=== PATIENT | female | born 1930 | race Caucasian/White ===

== ENCOUNTER 2016-09-29 10:24 | Inpatient (IN) | payer BC ==
[2016-09-29] MEDS: NORMAL SALINE 1,000 ML IV PRN (15:08)
[2016-09-29] MEDS: KETOROLAC TROMETHAMINE 30 MG/ML VIAL IV PRN ×2 (15:16→21:54)
[2016-09-29] MEDS ORDERED: PROPYLENE GLYCOL OP PRN (18:23)
[2016-09-29] MEDS ORDERED: [UNRECOGNIZED DRUG - OTHER] OP PRN (18:23)
[2016-09-29] MEDS ORDERED: PEG OP PRN (18:23)
--- NOTE | 2016-09-29 18:32 | CONS ---
[facility] - General Date of Service: 09/29/16 Source: patient, family, RN/MD, RN notes reviewed, old records Exam Limitations: no limitations - History of Present Illness Initial Comments: The patient started having rather severe abdominal pain on Monday night. Pain continued on Monday and she began to vomit so she came to the doctor today. CT scan shows high-grade small bowel obstruction with an area of transition. She has not moved her bowels or passed gas since Monday. Per family volunteers that she has been having some pain off and on with some vomiting since August 30. The patient usually has to take senna to move her bowels but even this has not worked the last 2 days. She has not been febrile. Timing/Duration: other Severity: moderate Modifying Factors - (Worsens): Reports: movement Modifying Factors - (Improves): Reports: rest Associated Symptoms: loss of appetite, nausea, vomiting Allergies/Adverse Reactions: Allergies No Known Allergies Allergy (Verified 09/29/16 15:52) Home Medications: Home Medications Medication Instructions Recorded Last Taken Lisinopril [Zestril] 10 mg PO DAILY 11/01/12 05/29/13 10 MG Vit A/Vit C/Vit E/Zinc/Copper 2 each PO DAILY 11/01/12 05/29/13 [Icaps Areds Softgel] 1 EACH Aspirin [Aspirin Enteric Coated] 81 mg PO DAILY 06/20/13 Unknown Multivitamins [Multivitamin Delvin] 1 cap PO DAILY 06/20/13 Unknown Alendronate Sodium [Fosamax] 70 mg PO Q7D 01/05/15 Unknown Calcium Carb, Citrate/Vit D3 1 each PO BID 01/05/15 Unknown [Citracal + D ER Tablet] Acetaminophen [Tylenol] 500 - 1,000 mg PO Q6H PRN 11/05/15 Unknown Efinaconazole [Jublia] 1 applic TP DAILY 11/05/15 Unknown Levothyroxine Sodium [Synthroid] 75 mcg PO DAILY 11/05/15 Unknown Polyethylene Glycol 3350 [Miralax] 17 gm PO DAILY 11/05/15 Unknown Propylene Glycol/Peg 400 [Systane 1 drop OP PRN PRN 11/05/15 Unknown 0.3-0.4% Eye Drops] Sennosides [Senokot] 8.6 mg PO HS 11/05/15 Unknown - Patient's Past Medical History Patient History - Medical: Anemia, Hypothyroidism, Osteoporosis Patient History - Cardiac/Respiratory: Hypertension Patient History - Cancer: Lymphoma, Other - 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 This was resected in October 2012. 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 She had a port placed for chemotherapy in 2012 and had treatment with CVP- Rituximab and R-CHOP 3 cycles then CVP-Rituximab until April 2013. EGD in May 2013 revealed no residual tumor in the stomach. Her port was removed in October 2015. Patient History - Surgical Procedures: Colonoscopy, EGD, Other - She presented with small bowel obstruction from intussusception in October 2012. This was resected. She had an episode of small bowel obstruction from adhesions requiring operation in December 2012. Patient History - Other: None - Family History Mother Family History - Medical: No pertinent hx Family History - Cardiac/Respiratory: CHF Family History - Cancer: No pertinent family hx Father Family History - Medical: No pertinent hx Family History - Cardiac/Respiratory: No pertinent hx, Myocardial Infarction - Social History Living Situations: alone Abuse History: No History of abuse Psych History: No pertinent hx Smoking Status: Former smoker Have you smoked in the past 12 months: No Do you dip or chew tobacco: No Alcohol Use: none Drug Use: none - Immunizations Immunizations Up to Date: Yes Hx Pneumococcal Vaccination: Yes History of Influenza Vaccine: Yes Procedures AFTER-CATAR DISCISSION (05/08/01) COLONOSCOPY (01/18/13) ENDOSC POLYPECTOMY OF LG INTEST (08/04/04) ESOPHAGOGASTRODUODENOSCOPY [EGD] W/CLOSED BIOPSY (06/24/13) INSERTION OF TOTALLY IMPLANTABLE VASC ACCESS DEVIC (01/02/13) OTH LYSIS-PERITONEAL ADHES (01/18/13) PART SM BOWEL RESECT NEC (11/02/12) REMOVE INFUSION PUMP FROM UP EXTREM SUBCU/FASCIA, [employer]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 Absent: Chills, Fever EENTM: Present: No Symptoms Reported Respiratory: Present: No Symptoms Reported Cardiac: Present: No Symptoms Reported Abdominal: Present: Other - The pain in her abdomen is relatively constant and hurts when she moves or coughs. She is vomiting brown material and has not moved her bowels or passed gas for 2 days. She is very distended. Genitourinary: Present: No Symptoms Reported Musculoskeletal: Present: No Symptoms Reported Neurological: Present: No Symptoms Reported Skin: Present: Dryness Physical Examination - Exam Vital Signs: Vital Signs - Last Taken Temp 36.7 C 09/29/16 15:24 Pulse 71 09/29/16 15:24 Resp 16 09/29/16 15:24 BP 147/67 09/29/16 15:24 Pulse Ox 98 09/29/16 15:24 O2 Oxygen Delivery Method Room Air Constitutional: Present: Alert, Oriented x3, Cooperative, Mild distress, Elderly ENT Exam: Present: normal ENT inspection Eye Exam: bilateral eye: normal inspection Neck: Present: full range of motion, normal inspection Respiratory: Present: no respiratory distress Abdomen: Present: other - Abdomen is very distended and tympanitic however is soft. There is no percussion tenderness. There is no discrete point tenderness and she does not guard. She does report the pain is worse on rapid release of the examining hand but again she does not guard /Rectal: Present: Exam deferred Extremity: Present: normal range of motion, no calf tenderness Skin Exam: Present: normal color, warm/dry Neurologic: Present: no motor/sensory deficits Appearance: Present: appropriate appearance, appropriate insight Eye contact: Present: cooperative, good eye contact, normal speech Thoughts: Present: normal thought pattern - Results and Findings: Narrative: CT scan of the abdomen and pelvis reveals findings suspicious for high-grade partial small bowel obstruction with a transition point. There is no free air or fluid. 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 There is considerable nasogastric output. Although the current presentation this with problems for 2 days, her family volunteer she's been having some trouble since early August. A trial of nasogastric suction overnight would not be unreasonable with reassessment in the morning regarding need for laparotomy. Discussed with Dr. Singh. Problem: Acute
--- NOTE | 2016-09-29 22:17 | HP ---
Chief Complaint - Chief Complaint Date of Service: 09/29/16 Time of Service: 17:10 Chief Complaint: Abdominal pain History of Present Illness: Daysi is an 86 yo female who reports two days ago began having abdominal pain, nausea, and vomiting. Emesis has been brown. She last had a bowel movement 2 days ago. She has a history of bowel obstruction and colon resection years ago. Family notes that she had mild symptoms of abdominal pain and nausea that first occurred around August 30. She was seen in clinic by me today and sent over for stat CT. CT showed small bowel obstruction with transition point in the RLQ. 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 This was resected in October 2012. 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 She had a port placed for chemotherapy in 2012 and had treatment with CVP- Rituximab and R-CHOP 3 cycles then CVP-Rituximab until April 2013. EGD in May 2013 revealed no residual tumor in the stomach. Her port was removed in October 2015. Patient History - Surgical Procedures: Colonoscopy, EGD, Other - She presented with small bowel obstruction from intussusception in October 2012. This was resected. She had an episode of small bowel obstruction from adhesions requiring operation in December 2012. Patient History - Other: None - Family History Mother Family History - Medical: No pertinent hx Family History - Cardiac/Respiratory: CHF Family History - Cancer: No pertinent family hx Father Family History - Medical: No pertinent hx Family History - Cardiac/Respiratory: No pertinent hx, Myocardial Infarction - Social History Living Situations: alone Abuse History: No History of abuse Psych History: No pertinent hx Smoking Status: Former smoker Have you smoked in the past 12 months: No Do you dip or chew tobacco: No Alcohol Use: none Drug Use: none - Immunizations Immunizations Up to Date: Yes Hx Pneumococcal Vaccination: Yes History of Influenza Vaccine: Yes Review Of Systems (GEN) - Review of Systems Generalized/Overall Review: Absent: Chills, Fever EENTM: Present: No Symptoms Reported Respiratory: Present: No Symptoms Reported Cardiac: Present: No Symptoms Reported Abdominal: Present: Nausea, Vomiting, Abdominal Pain, Constipation. Absent: Hematemesis, Diarrhea, Melena, Bright blood from rectum Genitourinary: Present: No Symptoms Reported Musculoskeletal: Present: No Symptoms Reported Neurological: Present: No Symptoms Reported Skin: Present: No Symptoms Reported Immunizations: IMMUNIZATION HX Immunizations Up to Date Yes History of Influenza Vaccine Yes Hx Pneumococcal Vaccination Yes Allergies/Adverse Reactions: Allergies Allergy/AdvReac Type Severity Reaction Status Date / Time No Known Allergies Allergy Verified 09/29/16 15:52 Home Medications: HOME MEDICATIONS Lisinopril [Zestril] 10 mg PO DAILY 11/01/12 [Last Taken 05/29/13 10 MG] Vit A/Vit C/Vit E/Zinc/Copper [Icaps Areds Softgel] 2 each PO DAILY 11/01/12 [ Last Taken 05/29/13 1 EACH] Aspirin [Aspirin Enteric Coated] 81 mg PO DAILY 06/20/13 [Last Taken Unknown] Multivitamins [Multivitamin Delvin] 1 cap PO DAILY 06/20/13 [Last Taken Unknown] Alendronate Sodium [Fosamax] 70 mg PO Q7D 01/05/15 [Last Taken Unknown] Calcium Carb, Citrate/Vit D3 [Citracal + D ER Tablet] 1 each PO BID 01/05/15 [ Last Taken Unknown] Acetaminophen [Tylenol] 500 - 1,000 mg PO Q6H PRN 11/05/15 [Last Taken Unknown] Efinaconazole [Jublia] 1 applic TP DAILY 11/05/15 [Last Taken Unknown] Levothyroxine Sodium [Synthroid] 75 mcg PO DAILY 11/05/15 [Last Taken Unknown] Polyethylene Glycol 3350 [Miralax] 17 gm PO DAILY 11/05/15 [Last Taken Unknown] Propylene Glycol/Peg 400 [Systane 0.3-0.4% Eye Drops] 1 drop OP PRN PRN [Last Taken Unknown] Sennosides [Senokot] 8.6 mg PO HS 11/05/15 [Last Taken Unknown] Exam - Exam Vital Signs: Vital Signs - Last Taken Temp 36.7 C 09/29/16 19:32 Pulse 74 09/29/16 19:32 Resp 18 09/29/16 19:32 BP 129/61 09/29/16 19:32 Pulse Ox 97 08/03/17 19:32 Constitutional: Present: Alert, Oriented x3, Cooperative ENT Exam: Present: hearing grossly normal Eye Exam: bilateral eye: normal inspection Respiratory: Present: lungs clear, normal breath sounds Cardiovascular/Chest: Present: regular rate, rhythm, no murmur Abdomen: Present: no hepatospenomegaly, tender - diffuse tenderness to palpation , rebound tenderness, distended, no bowel sounds. Absent: guarding, rigidity Extremity: Present: normal inspection Skin Exam: Present: normal color, warm/dry, no cyanosis Assessment/Plan - Assessment/Plan (1) Small bowel obstruction Assessment: Daysi is an 86 yo female with small bowel obstruction. Will admit to acute inpatient. Expect >2 midnights for treatment. This will include placement of NG tube with intermittent suction, NPO. Will plan to repeat serial abdominal xrays to monitor obstruction. Will treat pain with toradol as this will not slow GI tract as much as narcotics will. However may need narcotics based on pain control. Consulted general surgery. Due to prior surgical history may have adhesions responsible for obstruction. May need surgical investigation. Problem: Acute
[2016-09-30] MEDS: KETOROLAC TROMETHAMINE 30 MG/ML VIAL IV PRN ×4 (04:38→23:08)
[2016-09-30] MEDS: NORMAL SALINE 1,000 ML IV PRN ×2 (04:38→21:07)
--- NOTE | 2016-09-30 06:00 | PN ---
Subjective - Date and Time Seen Date: 09/30/16 Time: 05:52 Subjective Narrative: c/o mild nausea. vomited earlier in the night. states abdomen is not as firm as it was in the ER. Objective - Review of Systems Generalized/Overall Review: Reports: No Symptoms Reported EENTM: Reports: No Symptoms Reported Respiratory: Reports: No Symptoms Reported Cardiac: Reports: No Symptoms Reported Abdominal: Reports: Nausea, Vomiting, Abdominal Pain Genitourinary Symptoms: Reports: No Symptoms Reported Musculoskeletal Complaints: Reports: No Symptoms Reported Neurological: Reports: No Symptoms Reported Skin: Reports: No Symptoms Reported Endocrine: Reports: No Symptoms Reported Misc: All systems neg except as marked - Vitals Vitals: Last Vital Signs Temp 36.8 C 09/30/16 02:38 Pulse 69 09/30/16 02:38 Resp 16 09/30/16 02:38 BP 111/52 09/30/16 02:38 Pulse Ox 96 09/30/16 02:38 - Exam Constitutional: Present: Alert, Cooperative, No distress, Elderly Neck: Present: full range of motion, supple Breasts: Present: Exam deferred Respiratory: Present: chest non-tender, normal breath sounds, no respiratory distress Cardiovascular/Chest: Present: normal peripheral pulses, regular rate, rhythm, no chest tenderness Abdomen: Present: soft, tender - RLQ to right lower mid abdomen tender to palpation, high pitched bowel sounds - RUQ Extremity: Present: non-tender, normal inspection Skin Exam: Present: normal color, warm/dry, no cyanosis Assessment/Plan Plan Narrative: still with n/v. will give zofran for comfort. ng tube draining. abdominal xray pending this am. abdominal soft diffusely and mildly tender RLQ to midline. high pitched bowel sounds in the RUQ. continue same plan of care. general surgery following - appreciate their help. - Problems/Diagnosis (1) Abdominal pain Problem: Acute (2) Small bowel obstruction Problem: Acute
[2016-09-30 06:15] LABS: Hematocrit 34.9 % (37.0-47.0); Hemoglobin 12.3 gm/dL (12.5-16.0); Mean Cell Volume 91.4 fl (78-100); Mean Corpuscular Hemoglobin 32.2 pg (27-31); Mean Corpuscular Hgb Conc 35.2 g/dl (32-36); Mean Platelet Volume 10.2 fl (6.0-9.5); Neutrophil # 6.8 K/mm3 (1.3-6.0); Neutrophil % 76.8 % (42-75.0); Platelet Count 232 K/mm3 (150-450); Red Blood Count 3.82 M/mm3 (4.2-5.4); Red Cell Distribution Width 13.5 % (11.5-14.0); White Blood Count 8.8 K/mm3 (4.0-10.5)
[2016-09-30] MEDS ORDERED: ONDANSETRON HCL/PF 2 MG/ML VIAL IV ONE (06:15)
[2016-09-30 06:25] LABS: Albumin * 3.3 gm/dl (3.4-5.0); Anion Gap 13.5 mmol/L (6.8-13.8); BUN/Creatinine Ratio 18.1 (9.0-21.6); Bilirubin, Total 0.9 mg/dL (0.0-1.1); Ca. Corrected For Albumin 9.2 mg/dL (8.4-10.2); Carbon Dioxide 28.8 mmol/L (24-32.6); Potassium 4.3 mmol/L (3.4-4.6); Total Protein 6.5 gm/dL (6.2-8.2)
[2016-09-30] MEDS: LEVOTHYROXINE SODIUM 75 MCG TABLET PO SCH (07:05)
[2016-09-30] MEDS: LISINOPRIL 10 MG TABLET PO SCH (10:46)
[2016-10-01 06:27] LABS: Hematocrit 32.8 % (37.0-47.0); Hemoglobin 11.4 gm/dL (12.5-16.0); Mean Cell Volume 93.4 fl (78-100); Mean Corpuscular Hemoglobin 32.5 pg (27-31); Mean Corpuscular Hgb Conc 34.8 g/dl (32-36); Mean Platelet Volume 9.4 fl (6.0-9.5); Neutrophil # 6.9 K/mm3 (1.3-6.0); Neutrophil % 79.7 % (42-75.0); Platelet Count 196 K/mm3 (150-450); Red Blood Count 3.51 M/mm3 (4.2-5.4); Red Cell Distribution Width 13.3 % (11.5-14.0); White Blood Count 8.6 K/mm3 (4.0-10.5)
[2016-10-01 06:45] LABS: Anion Gap 14.7 mmol/L (6.8-13.8); BUN/Creatinine Ratio 26.9 (9.0-21.6); Calcium * 8.1 mg/dL (7.9-10.9); Carbon Dioxide 25.6 mmol/L (24-32.6); Estimated Creat Clear 32.3; Potassium 4.3 mmol/L (3.4-4.6)
[2016-10-01] MEDS: KETOROLAC TROMETHAMINE 30 MG/ML VIAL IV PRN ×2 (07:11→18:53)
[2016-10-01] MEDS: LEVOTHYROXINE SODIUM 75 MCG TABLET PO SCH (07:12)
[2016-10-01] MEDS: LISINOPRIL 10 MG TABLET PO SCH (09:09)
--- NOTE | 2016-10-01 09:49 | PN ---
Dictated Progress Note - Date and Time Seen: Date: 10/01/16 Time: 09:45 - Progress Note Narrative: Vital Signs - Last Taken Temp 37.5 C 10/01/16 07:01 Pulse 73 10/01/16 09:09 Resp 16 10/01/16 07:01 BP 127/59 10/01/16 09:09 Pulse Ox 95 10/01/16 07:01 Abnormal/Pending Laboratory Last 24 HRS 10/01/16 10/01/16 06:27 06:27 RBC 3.51 L Hgb 11.4 L Hct 32.8 L MCH 32.5 H Immature Gran % (Auto) 0.50 H Immature Gran # (Auto) 0.04 H Neutrophils % 79.7 H Lymphocytes % 9.6 L Monocytes % 9.8 H Neutrophils # 6.9 H Lymphocytes # 0.8 L Chloride 96 L Anion Gap 14.7 H BUN 28 H Est GFR (Non-Af Amer) 53 L BUN/Creatinine Ratio 26.9 H Yesterday there was some contrast through to the cecum, and the NG was not decompressing the stomach. This was adjusted. Today the bowel gas/contrast pattern has not changed and there is more NG output. No flattus or BM. Impression: Small bowel obstruction, not improved Recommend: Exploratory laparotomy for lysis of adhesions, or possible resection if the area is recurrent lymphoma. Will discuss with patient (in shower) and Dr Singh.
[2016-10-01] MEDS ORDERED: ceFAZolin SODIUM 2 GM in DEXTROSE 5 % IN WATER 50 ML IV ONE ×2 (11:31)
[2016-10-01] MEDS: NORMAL SALINE 1,000 ML IV PRN (12:05)
--- NOTE | 2016-10-01 23:51 | PN ---
Subjective - Date and Time Seen Date: 10/01/16 Time: 17:00 Subjective Narrative: Daysi reports continued abdominal pain, distention. Not passing stool or gas. She is still having dark green fluid out of her NG tube. Objective - Vitals Vitals: Last Vital Signs Temp 36.8 C 10/01/16 19:13 Pulse 78 10/01/16 19:13 Resp 18 10/01/16 19:13 BP 135/54 10/01/16 19:13 Pulse Ox 93 10/01/16 19:13 - Abnormal Lab Findings Abnormal Lab Findings: Abnormal Lab Results 10/01/16 10/01/16 Range/Units 06:27 06:27 RBC 3.51 L (4.2-5.4) M/mm3 Hgb 11.4 L (12.5-16.0) gm/dL Hct 32.8 L (37.0-47.0) % MCH 32.5 H (27-31) pg Immature Gran % (Auto) 0.50 H (0.001-0.429) % Immature Gran # (Auto) 0.04 H (0.000-0.0310) K/mm3 Neutrophils % 79.7 H (42-75.0) % Lymphocytes % 9.6 L (20-51) % Monocytes % 9.8 H (0.0-9) % Neutrophils # 6.9 H (1.3-6.0) K/mm3 Lymphocytes # 0.8 L (1.5-3.5) k/mm3 Chloride 96 L (97-106) mmol/L Anion Gap 14.7 H (6.8-13.8) mmol/L BUN 28 H (3-23) mg/dL Est GFR (Non-Af Amer) 53 L (60-130) mL/min BUN/Creatinine Ratio 26.9 H (9.0-21.6) - Exam Constitutional: Present: Alert, Oriented x3, Cooperative ENT Exam: Present: hearing grossly normal Respiratory: Present: lungs clear, normal breath sounds Cardiovascular/Chest: Present: regular rate, rhythm, no murmur Abdomen: Present: no masses, tender - diffuse tenderness, rebound tenderness, distended - with tympanic percussion, no bowel sounds Assessment/Plan Plan Narrative: Patient with continued small bowel obstruction. Currently treatment conservatively with NG tube, NPO, and pain control with toradol. General surgery on board. Patient with history of atrial fibrillation with RVR after last surgery, we currently do not have ICU nursing staff. Surgery concerned about taking patient to surgery without a safety net of having an ICU staff available. This was discussed with the patient. She is ok waiting till tomorrow to see if her condition improves. - Problems/Diagnosis (1) Small bowel obstruction Problem: Acute
[2016-10-02] MEDS: NORMAL SALINE 1,000 ML IV PRN ×2 (01:34→16:11)
[2016-10-02] MEDS: LEVOTHYROXINE SODIUM 75 MCG TABLET PO SCH (07:44)
[2016-10-02] MEDS: KETOROLAC TROMETHAMINE 30 MG/ML VIAL IV PRN ×2 (08:04→14:20)
[2016-10-02 09:49] LABS: Hematocrit 31.5 % (37.0-47.0); Hemoglobin 10.6 gm/dL (12.5-16.0); Mean Cell Volume 95.7 fl (78-100); Mean Corpuscular Hemoglobin 32.2 pg (27-31); Mean Corpuscular Hgb Conc 33.7 g/dl (32-36); Mean Platelet Volume 9.1 fl (6.0-9.5); Platelet Count 194 K/mm3 (150-450); Red Blood Count 3.29 M/mm3 (4.2-5.4); Red Cell Distribution Width 13.3 % (11.5-14.0); White Blood Count 8.8 K/mm3 (4.0-10.5)
[2016-10-02 09:55] LABS: Total Cells Counted 100
[2016-10-02 10:02] LABS: Albumin * 2.9 gm/dl (3.4-5.0); Anion Gap 18.7 mmol/L (6.8-13.8); BUN/Creatinine Ratio 31.1 (9.0-21.6); Bilirubin, Total 0.4 mg/dL (0.0-1.1); Ca. Corrected For Albumin 8.4 mg/dL (8.4-10.2); Calcium * 7.8 mg/dL (7.9-10.9); Carbon Dioxide 21.5 mmol/L (24-32.6); Potassium 4.2 mmol/L (3.4-4.6)
[2016-10-02] MEDS: LISINOPRIL 10 MG TABLET PO SCH (10:04)
[2016-10-02 10:34] LABS: Atypical (Reactive) Lymph 8 % (0-2); Band 6 % (0-2.0); Basophil 1 % (0-1); Lymphocyte 10 % (20-51); Monocyte 4 % (0-9); Neutrophil 71 % (42-75); Neutrophil # 6.2 K/mm3 (1.3-6.0); Platelet Estimate Normal (NORMAL)
[2016-10-02 10:35] LABS: RBC Morphology Normal (NORMAL)
--- NOTE | 2016-10-02 11:22 | DS ---
Transfer Discharge Summary - Diagnosis(s)/Problems (1) Small bowel obstruction Narrative: Daysi was admitted from clinic on 09/29/16 with 2 days of progressive abdominal pain, no bowel movements, no flatus, and vomiting fluid which had turned brown. She had a stat CT performed that showed small bowel obstruction. She was admitted to acute inpatient status. NG tube was placed with return of brown fluid. She was made NPO and surgery was consulted. She was monitored with daily abdominal xrays but did not improve. Labwork initially showed hyponatremia, but this was corrected with IVFs. Her abdominal exam and abdominal xrays continued to show persistent small bowel obstruction. Surgery felt that the conservative approach was not going to be successful. She has a complicated history of prior small bowel obstruction which required resection of lymphoma mass and anastomosis. She also had complications of atrial fibrillation with RVR. Surgery was concerned performing the surgery without ICU staffing. [facility] was contacted for transfer and accepted. Problem: Acute - Course Procedures Performed: none - Results and Findings Results and Findings: Laboratory Results - last 24 hr 10/02/16 10/02/16 09:42 09:42 WBC 8.8 RBC 3.29 L Hgb 10.6 L Hct 31.5 L MCV 95.7 MCH 32.2 H MCHC 33.7 RDW 13.3 Plt Count 194 MPV 9.1 Neutrophils % (Manual) 71 Band Neuts % (Manual) 6 H Lymphocytes % (Manual) 10 L Monocytes % (Manual) 4 Basophils % (Manual) 1 Neutrophils # (Manual) 6.2 H Lymphocytes # (Manual) 0.9 L Monocytes # (Manual) 0.4 Basophils # (Manual) 0.1 Atypic/Reactive Lymphs 8 H Platelet Estimate Normal RBC Morphology Normal Sodium 135 Plasma Sodium 134 Potassium 4.2 Chloride 99 Carbon Dioxide 21.5 L Anion Gap 18.7 H BUN 23 Creatinine 0.74 Est GFR (Non-Af Amer) 79 D BUN/Creatinine Ratio 31.1 H Random Glucose 60 L Calcium 7.8 L Calcium Adj for Albumin 8.4 Total Bilirubin 0.4 AST 22 ALT 15 L Alkaline Phosphatase 51 Total Protein 6.0 L Albumin 2.9 L - Medications Medications: Active Medications Sodium Chloride (Sodium Chloride 0.9%) 1,000 mls @ 70 mls/hr IV .[id number] PRN PRN Reason: HYDRATION Stop: 10/29/16 14:17 Last Admin: 10/02/16 01:34 Dose: 70 mls/hr Ketorolac Tromethamine (Toradol) 30 mg IV Q6H PRN PRN Reason: Pain Stop: 10/04/16 14:20 Last Admin: 10/02/16 08:04 Dose: 30 mg Levothyroxine Sodium (Synthroid) 75 mcg PO QDAC [facility] Stop: 10/30/16 07:01 Last Admin: 10/02/16 07:44 Dose: 75 mcg Lisinopril (Zestril) 10 mg PO DAILY [facility] Stop: 10/30/16 09:01 Last Admin: 10/02/16 10:04 Dose: 10 mg Discontinued Medications Ondansetron HCl (Zofran) 4 mg IV ONCE ONE Stop: 09/30/16 06:16 Last Admin: 09/30/16 06:18 Dose: 4 mg - Disposition Disposition: [facility] Condition: Poor
[2016-10-02 16:07] VITALS: BP 142/54
== END 2016-10-02 16:43 | disposition short-term general hospital (02) | DRG 390 ==
LOC: RAD 10:24 → MS 13:51
PROVIDERS: ADMIT Family Medicine; ATTEND Family Medicine
DX: K56.60 Unspecified intestinal obstruction (principal); E03.9 Hypothyroidism, unspecified; I10 Essential (primary) hypertension; Z85.72 Personal history of non-Hodgkin lymphomas; Z87.891 Personal history of nicotine dependence; Z92.21 Personal history of antineoplastic chemotherapy; Z79.82 Long term (current) use of aspirin
CPT/HCPCS: 36415; 74000; 74020; 74177; 80048; 80053; 85007; 85025; 93005; J2405

== ENCOUNTER 2017-10-04 15:59 | Inpatient (IN) ==
--- NOTE | 2017-10-04 18:12 | ERNOTE ---
Medical Problem HPI - Narrative Date of Service: 10/04/17 - General Chief Complaint: Lower Extremity Pain/ Injury Time Seen by Provider: 10/04/17 16:38 Source: patient, family, RN notes reviewed, old records Exam Limitations: no limitations - Immun/Allergies/Home Medications Immunizations: IMMUNIZATION HX Immunizations Up to Date Yes History of Influenza Vaccine Yes Hx Pneumococcal Vaccination Yes Allergies/Adverse Reactions: Allergies No Known Allergies Allergy (Verified 10/04/17 16:19) Home Medications: HOME MEDICATIONS Lisinopril [Zestril] 10 mg PO DAILY 11/01/12 [Last Taken 05/29/13 10 MG] Vit A/Vit C/Vit E/Zinc/Copper [Icaps Areds Softgel] 2 ea PO DAILY 11/01/12 [ Last Taken 05/29/13 1 EACH] Aspirin [Aspirin Enteric Coated] 81 mg PO DAILY 06/20/13 [Last Taken Unknown] Multivitamins [Multivitamin Delvin] 1 cap PO DAILY 06/20/13 [Last Taken Unknown] Alendronate Sodium [Fosamax] 70 mg PO Q7D 01/05/15 [Last Taken Unknown] Acetaminophen [Tylenol] 500 - 1,000 mg PO Q6H PRN 11/05/15 [Last Taken Unknown] Levothyroxine Sodium [Synthroid] 75 mcg PO DAILY 11/05/15 [Last Taken Unknown] Polyethylene Glycol 3350 [Miralax] 17 gm PO DAILY 11/05/15 [Last Taken Unknown] calcium phosphate-vitamin D3 250 mg calcium-250 unit chewable tablet 1 tab PO BID tab 09/25/17 [Last Taken Unknown] peg 400-propylene glycol 0.4 %-0.3 % eye drops 1 drp OP DAILY 09/25/17 [Last Taken Unknown] - History of Present History Narrative: Daysi is a 87 year old female brought to the ED by her family after being notified that lab work she had done earlier this afternoon. Her sodium is 123 and her BNP is 1309. The lab work was done due to concerns about her lower extremity edema that has been ongoing for approximately a year. 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 She has been seeing oncology at [facility] for this. She is going to the [facility] soon for a second opinion about her treatment. In addition, her family reports that she fell yesterday morning while getting into the shower. She reports hitting her head and lower back. She hit her head "very hard" but denies any LOC. She does not have any back pain at rest, but reports that it is sore when she moves. Review of Systems - Review of Systems Constitutional: Present: fatigue, decreased activity level. Absent: fever, chills EYE: Absent: eye pain, vision changes ENT: Present: no symptoms reported Respiratory: Absent: shortness of breath, cough, orthopnea Cardiology: Present: edema. Absent: chest pain, palpitations, claudication Gastrointestinal/Abdominal: Absent: nausea, vomiting, abdominal pain Genitourinary: Absent: dysuria, decreased urinary output Musculoskeletal: Present: back pain. Absent: neck pain, joint pain, joint swelling Skin: Absent: rash, lesions, change in color Neurological: Absent: headache, dizziness/light-headedness, weakness Endocrine: Present: no symptoms reported Hematologic/Lymphatic: Absent: easy bruising, easy bleeding Psych: Present: no symptoms reported Medical History (Last Reviewed 10/04/17 @ 16:18 by Ann Sanchez RN) Hypertension Onset Date: Unknown Hypothyroidism (acquired) Onset Date: Unknown Macular degeneration Onset Date: Unknown Osteoporosis Onset Date: Unknown Fracture of humerus, left, closed Onset Date: ~01/2014 History of chemotherapy Onset Date: Unknown MALT (mucosa associated lymphoid tissue) Onset Date: Unknown Malignant lymphoma, non-Hodgkin's Onset Date: Unknown Shingles Onset Date: Unknown Small bowel obstruction Onset Date: ~09/29/16 Surgical History: Surgical History (Last Reviewed 10/04/17 @ 16:19 by Ann Sanchez RN) Encounter for insertion of venous access port Onset Date: ~01/02/13 H/O colonoscopy Onset Date: ~01/16/13 H/O exploratory laparotomy Onset Date: ~01/18/13 H/O lumpectomy Onset Date: ~1958 History of bowel resection Onset Date: ~11/02/12 History of esophagogastroduodenoscopy (EGD) Onset Date: ~06/24/13 Family History: Family History (Last Reviewed 09/29/17 @ 09:16 by Danielle Shepard) Father Hypertension Heart disease Grandmother Breast cancer Mother CHF (congestive heart failure) Hypertension Sister Hypertension Sister Cancer Social History: Preferred Language Romansh Smoking Status Former smoker Abuse History No History of abuse Psych History No pertinent hx Alcohol Use occasionally Drug Use none Physical Exam - Physical Exam General Appearance: Present: alert, no apparent distress, thin Head Exam: Present: normal inspection, no evidence of injury Eye Exam: Normal inspection: bilateral, PERRL: bilateral Neck: Present: normal inspection, nontender, supple, full range of motion Respiratory: Present: no respiratory distress, normal breath sounds, no accessory muscle use, lungs clear Cardiovascular/Chest: Present: regular rate, rhythm, no murmur, normal peripheral pulses Peripheral Pulses: N=norm/S=strong/W=weak/B=bound/A=absent: Dorsalis-pedis (R): Normal, Dorsalis-pedis (L): Normal Gastrointestinal/Abdominal: Present: nontender, distended - firm, mass Extremity Exam: Present: extremity edema - 3+ pitting edema to bilateral lower legs. Absent: joint redness, joint swelling Neurological Exam: Present: alert, oriented, normal mood/affect, no motor/ sensory deficits Skin Exam: Present: normal color, warm/dry ED Progress - Vital Signs Patient's Vital Signs:: I have reviewed the patient's vital signs. Vital Signs: Vital Signs 10/04/17 16:21 Temperature 36.6 C Pulse Rate 76 Respiratory Rate 16 Blood Pressure 158/70 H O2 Sat by Pulse Oximetry 98 - EKG EKG: NSR EKG read: Reviewed by me - X-Ray X-Ray #1 X-Ray: chest Interpretation: Interp. by me X-ray Comments: Cardiomegaly, no congestion suggestive of CHF, small bilateral pleural effusions - CT/Ultrasound CT/Ultrasound Narrative: Head CT is without acute intracranial abnormalities - Progress/Reassessment Chief Complaint: Lower Extremity Pain/ Injury Progress:: Unchanged Plan - Plan Plan: Dr. Jones contacted and the patient will be admitted to observation status on Med/Surg for her hyponatremia. She will be getting IV NS at 125ml/hr and will be on a fluid restriction of 750 ml per day. Her BMP will be rechecked at 0100. She and her family are in agreement with plan. Departure Clinical Impression: Acute hyponatremia Fall at home Qualifiers: Encounter type: initial encounter Qualified Code(s): W19.XXXA - Unspecified fall, initial encounter; Y92.009 - Unspecified place in unspecified non- institutional (private) residence as the place of occurrence of the external cause - Departure Disposition: Still a patient Condition: Stable
[2017-10-04] MEDS ORDERED: NORMAL SALINE 1,000 ML IV ONE (18:36)
--- NOTE | 2017-10-04 21:52 | HP ---
Chief Complaint - Chief Complaint Date of Service: 10/04/17 Time of Service: 21:51 Chief Complaint: ' Abnormal labs'. Source of HPI-Pt; reliable, ERP notes, pt's 2 sons and daughter. History of Present Illness: Mrs. Pittman is a 87-yr-old [facility] pt of Dr. Abimael Singh with a PMH of: B cell lymphoma, HTN, HLD, Hypothyroidism, Osteoporosis & Small bowel resection. Pt was brought to the ED by family following notification about abnormal follow-up labs by PCP. She reportedly had a Serum Na of 123 and BNP of 1309. Pt had been following up at the [facility] oncology following CT findings on 08/21/17, which had numerous findings involving liver lesions & probable mesenteric adenopathy which were concerning for metastasis. Pt's family states that they were informed by the oncologist that due to pt's age, she could not withstand IV chemotherapy. The oncologist offered to treat pt with keytruda, but they objected that as it was still going to be administered intravenously. Family states that they are frustrated about frequent stance concerning the pt's age and the complications with chemo treatment. They feel that their mother is strong, very independent and her physique is not of other elderly people her age. Therefore, they opted to seek a second opinion at the [facility] for their mother. The pt has an appointment scheduled for next Monday (10/09). Family states that were concerned about the ongoing worsening swelling which has been present for a period of 1 yr, and they were asked to follow-up with PCP. She then had those labs on 10/04 as part of work-up in finding the etiology of her leg swelling. Pt denies weakness, headaches. There are no reports of lethargy or confusion according to the family. Pt denies coughing, fevers, SOB abdominal pain and diarrhea n& v. She has had back pain. She fell 2 days ago hitting her head, but head CT was negative of acute findings. The CXR showed interstitial edema, small bilateral effusion, and atelectasis. It also showed age intermediate anterior compression fracture within mid thoracic spine , which was new from prior exam in 2013. She will be admitted inpatient due to hyponatremia which may take several days to correct to NR Medical History (Last Reviewed 10/04/17 @ 21:29 by Nikki Cedeño RN) Hypertension Onset Date: Unknown Hypothyroidism (acquired) Onset Date: Unknown Macular degeneration Onset Date: Unknown Osteoporosis Onset Date: Unknown Fracture of humerus, left, closed Onset Date: ~01/2014 History of chemotherapy Onset Date: Unknown MALT (mucosa associated lymphoid tissue) Onset Date: Unknown Malignant lymphoma, non-Hodgkin's Onset Date: Unknown Shingles Onset Date: Unknown Small bowel obstruction Onset Date: ~09/29/16 Surgical History: Surgical History (Last Reviewed 10/04/17 @ 21:29 by Nikki Cedeño RN) Encounter for insertion of venous access port Onset Date: ~01/02/13 H/O colonoscopy Onset Date: ~01/16/13 H/O exploratory laparotomy Onset Date: ~01/18/13 H/O lumpectomy Onset Date: ~1958 History of bowel resection Onset Date: ~11/02/12 History of esophagogastroduodenoscopy (EGD) Onset Date: ~06/24/13 Family History: Family History (Last Updated 10/04/17 @ 21:31 by Nikki Cedeño RN) Father Heart disease Hypertension Grandmother Breast cancer Mother CHF (congestive heart failure) Hypertension Sister Hypertension Cancer Sister No problems noted. Social History: Preferred Language Kenyan Smoking Status Former smoker Abuse History No History of abuse Psych History No pertinent hx Alcohol Use occasionally Drug Use none Review Of Systems (GEN) - Review of Systems Generalized/Overall Review: Absent: Weakness, Chills, Fever, Malaise EENTM: Absent: Eye Pain, Blurred Vision, Tearing, Ear Pain Respiratory: Absent: Cough, Shortness of Breath Cardiac: Present: Edema. Absent: Chest Pain, Palpitations, Syncope Abdominal: Absent: Nausea, Vomiting, Hematemesis, Abdominal Pain, Constipation Genitourinary: Absent: Burning, Itching, Urgency, Frequency, Hesitancy, Retention Musculoskeletal: Present: Joint Pain, Back Pain. Absent: Joint Swelling, Muscle Pain Neurological: Present: Depressed, Weakness. Absent: Headache, Anxiety Skin: Absent: Dryness, Lesions, Lumps Endocrine: Present: Intolerance to Cold. Absent: Increased Hunger, Increased Thirst Immunizations: IMMUNIZATION HX Immunizations Up to Date Yes History of Influenza Vaccine Yes Hx Pneumococcal Vaccination Yes Allergies/Adverse Reactions: Allergies Allergy/AdvReac Type Severity Reaction Status Date / Time No Known Allergies Allergy Verified 10/04/17 21:31 Home Medications: HOME MEDICATIONS Lisinopril [Zestril] 10 mg PO DAILY 11/01/12 [Last Taken 05/29/13 10 MG] Vit A/Vit C/Vit E/Zinc/Copper [Icaps Areds Softgel] 2 ea PO DAILY 11/01/12 [ Last Taken 05/29/13 1 EACH] Aspirin [Aspirin Enteric Coated] 81 mg PO QPM 06/20/13 [Last Taken Unknown] Multivitamins [Multivitamin Delvin] 1 cap PO DAILY 06/20/13 [Last Taken Unknown] Alendronate Sodium [Fosamax] 70 mg PO Q7D 01/05/15 [Last Taken Unknown] Acetaminophen [Tylenol] 1,000 mg PO QPM PRN 11/05/15 [Last Taken Unknown] Levothyroxine Sodium [Synthroid] 75 mcg PO DAILY 11/05/15 [Last Taken Unknown] Polyethylene Glycol 3350 [Miralax] 17 gm PO QPM 11/05/15 [Last Taken Unknown] calcium phosphate-vitamin D3 250 mg calcium-250 unit chewable tablet 1 tab PO BID tab 09/25/17 [Last Taken Unknown] peg 400-propylene glycol 0.4 %-0.3 % eye drops 1 drp OP DAILY PRN 09/25/17 [ Last Taken Unknown] Ibuprofen 200 mg PO QAM 10/04/17 [Last Taken Unknown] Exam - Exam Vital Signs: Vital Signs - Last Taken Temp 36.6 C 10/04/17 21:41 Pulse 81 10/04/17 21:41 Resp 16 10/04/17 21:41 BP 135/52 10/04/17 21:41 Pulse Ox 96 10/04/17 21:41 Constitutional: Present: Alert, Oriented x3, Cooperative, No distress ENT Exam: Present: normal ENT inspection Eye Exam: bilateral eye: normal inspection, PERRL Neck: Present: non-tender, full range of motion, supple Back Exam: Present: normal inspection, no CVA tenderness Breasts: Present: Exam deferred Respiratory: Present: No rales, No wheezing Cardiovascular/Chest: Present: normal peripheral pulses, gallop/S3, edema Abdomen: Present: Normal bowel sounds, firm, distended /Rectal: Present: Exam deferred Extremity: Present: normal range of motion, no pedal edema, lower extremity edema, other - 3-4 + tibial pedal edema Skin Exam: Present: no cyanosis, cool/dry Lymphatic: Present: no adenopathy Neurologic: Present: alert, oriented x 3 Appearance: Present: appropriate appearance, appropriate insight Eye contact: Present: cooperative, good eye contact, normal speech Thoughts: Present: normal thought pattern, no apparent hallucination Assessment/Plan - Assessment/Plan (1) Acute hyponatremia Assessment: Is likely due to hypervolemic hyponatremia given fluid overload signs from interstitial edema on the CXR, Peripheral pitting edema, and ascites likely given distended firm abdomen. Will diurese with lasix Could also be worsened by NSAID therapy- pt takes ibuprofen three time daily. Will advise to discontinue. Problem: Acute (2) Acute exacerbation of CHF (congestive heart failure) Assessment: Given the findings on the CXR involving interstitial edema, elevated BNP, and peripheral edema, will diurese with Lasix. Monitor kidney function and will determine daily doses based on electrolytes and fluid volume status. 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 This was resected in October 2012. She had a mucosa associated lymphoid tumor (MALT) found on EGD done to investigate gastric wall thickening seen on staging CT. She had a port placed for chemotherapy in 2012 and had treatment with CVP-Rituximab and R-CHOP 3 cycles then CVP-Rituximab until April 2013. EGD in May 2013 revealed no residual tumor in the stomach. Her port was removed in October 2015. Problem: Chronic (5) HTN (hypertension) Problem: Chronic (6) HLD (hyperlipidemia) Problem: Chronic
[2017-10-04] MEDS ORDERED: POLYVINYL ALCOHOL 150 DROP BTL EACHEYE PRN (23:08)
[2017-10-04] MEDS ORDERED: POTASSIUM CHLORIDE 20 MEQ TABLET.SA PO ONE (23:45)
[2017-10-04] MEDS ORDERED: FUROSEMIDE 10 MG/ML VIAL IV ONE (23:45)
[2017-10-05] MEDS ORDERED: POTASSIUM CHLORIDE 20 MEQ TABLET.SA ONE (01:06)
[2017-10-05] MEDS ORDERED: FUROSEMIDE 10 MG/ML VIAL ONE (01:07)
[2017-10-05] MEDS: ACETAMINOPHEN 500 MG TABLET PO PRN ×2 (01:15→21:49)
[2017-10-05 01:21] LABS: BUN/Creatinine Ratio 15.9 (9.0-21.6); Calcium * 7.8 mg/dL (7.9-10.9); Carbon Dioxide 26.4 mmol/L (24-32.6); Estimated Creat Clear 35.1; Potassium 4.4 mmol/L (3.4-4.6)
--- NOTE | 2017-10-05 05:28 | PN ---
Subjective - Date and Time Seen Date: 10/05/17 Time: 05:28 Subjective Narrative: Pt seen this morning. She diuresed nearly 1 L with 40 of IV lasix. Is complaining of back pain which is worsened with activity. No other issues according to nursing. Objective - Vitals Vitals: Last Vital Signs Temp 36.6 C 10/04/17 21:43 Pulse 75 10/05/17 01:24 Resp 16 10/04/17 21:43 BP 145/68 10/05/17 01:24 Pulse Ox 96 10/04/17 21:43 - Abnormal Lab Findings Abnormal Lab Findings: Abnormal Lab Results 10/05/17 Range/Units 01:00 Sodium 125 L (132-142) mmol/L Plasma Sodium 125 L (130-142) mmol/L Chloride 92 L (97-106) mmol/L Calcium 7.8 L (7.9-10.9) mg/dL - Exam Constitutional: Present: Alert, Oriented x3, Cooperative, No distress ENT Exam: Present: normal ENT inspection, hearing grossly normal Neck: Present: non-tender, full range of motion Breasts: Present: Exam deferred Respiratory: Present: No rales, No wheezing Cardiovascular/Chest: Present: normal peripheral pulses, regular rate, rhythm, no chest tenderness, edema Abdomen: Present: Normal bowel sounds, firm, distended /Rectal: Present: Exam deferred Extremity: Present: normal range of motion, non-tender, lower extremity edema Skin Exam: Present: warm/dry, no cyanosis Lymphatic: Present: no adenopathy Neurologic: Present: no motor/sensory deficits, alert, oriented x 3 Appearance: Present: appropriate appearance, appropriate insight Eye contact: Present: cooperative, good eye contact, normal speech Thoughts: Present: normal thought pattern, no apparent hallucination Assessment/Plan - Problems/Diagnosis (1) Acute hyponatremia Problem: Acute Narrative: Is likely due to hypervolemic hyponatremia given fluid overload signs from interstitial edema on the CXR, Peripheral pitting edema, and ascites likely given distended firm abdomen. Will diurese with lasix Could also be worsened by NSAID therapy- pt takes ibuprofen three time daily. Will advise to discontinue. Laboratory Tests 10/04/17 10/05/17 10/05/17 13:12 01:00 05:23 Plasma Sodium 125 L 127 L B-Natriuretic Peptide 1309 H (2) Acute exacerbation of CHF (congestive heart failure) Problem: Acute Qualifiers: Heart failure type: diastolic Qualified Code(s): I50.33 - Acute on chronic diastolic (congestive) heart failure Narrative: Given the findings on the CXR involving interstitial edema, elevated BNP, and peripheral edema, will diurese with Lasix. Monitor kidney function and will determine daily doses based on electrolytes and fluid volume status. 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 This was resected in October 2012. She had a mucosa associated lymphoid tumor (MALT) found on EGD done to investigate gastric wall thickening seen on staging CT. She had a port placed for chemotherapy in 2012 and had treatment with CVP-Rituximab and R-CHOP 3 cycles then CVP-Rituximab until April 2013. EGD in May 2013 revealed no residual tumor in the stomach. Her port was removed in October 2015. (5) HTN (hypertension) Problem: Chronic (6) HLD (hyperlipidemia) Problem: Chronic
[2017-10-05 05:34] LABS: Anion Gap 11.1 mmol/L (6.8-13.8); BUN/Creatinine Ratio 14.1 (9.0-21.6); Calcium * 7.9 mg/dL (7.9-10.9); Carbon Dioxide 28.3 mmol/L (24-32.6); Estimated Creat Clear 33.9; Potassium 4.4 mmol/L (3.4-4.6)
[2017-10-05] MEDS ORDERED: POLYVINYL ALCOHOL 150 DROP BTL EACHEYE PRN (06:30)
[2017-10-05] MEDS ORDERED: FUROSEMIDE 10 MG/ML VIAL IV ONE (06:56)
[2017-10-05] MEDS: LEVOTHYROXINE SODIUM 75 MCG TABLET PO SCH (07:29)
[2017-10-05] MEDS: MULTIVITAMINS 1 CAP CAPSULE PO SCH (09:13)
[2017-10-05] MEDS: BETA-CAROTENE(A) W-C , E/MIN 1 TAB TABLET PO SCH (09:13)
[2017-10-05] MEDS: CALCIUM CARBONATE/VITAMIN D3 1 TAB TABLET PO SCH ×2 (09:13→21:50)
[2017-10-05] MEDS: LISINOPRIL 10 MG TABLET PO SCH (09:13)
[2017-10-05] MEDS: IBUPROFEN 200 MG TABLET PO SCH (09:13)
[2017-10-05] MEDS ORDERED: ENOXAPARIN SODIUM 40 MG/0.4 ML SYRG SC SCH (12:00)
[2017-10-05] MEDS ORDERED: ASPIRIN 81 MG TABLET.DR PO SCH (17:00)
[2017-10-05] MEDS ORDERED: POLYETHYLENE GLYCOL 3350 119 GM BTL PO SCH ×2 (17:00)
[2017-10-06 05:36] LABS: Anion Gap 9.3 mmol/L (6.8-13.8); BUN/Creatinine Ratio 16.7 (9.0-21.6); Calcium * 8.6 mg/dL (7.9-10.9); Carbon Dioxide 30.1 mmol/L (24-32.6); Estimated Creat Clear 34.3; Potassium 4.4 mmol/L (3.4-4.6)
--- NOTE | 2017-10-06 05:47 | DS ---
Addendum entered and electronically signed by Caleb Jones MD 10/06/17 14 :47: Addendum entered and electronically signed by Caleb Jones MD 10/06/17 14 :41: I saw and examined this patient on 10/06/2017. I agree with the narraive and plan of JESSICA Sifuentes. She had hypervoolemic hypotnic hyponatremia. Her Na is back to her baseline at 128. She is asymptomatic. 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 Her Echo showed moderate concentric LVH, normal EF, diastolic dysfunction, mild MR,AR,TR. Will discharge her on Lasix, and TERA I. Continue with her home medications. She has an appointment with [facility] on Monday. Follow up with her PCP in 2 weeks. Original Note: <Caleb Jones - Last Filed: 10/06/17 14:21> (1) Acute exacerbation of CHF (congestive heart failure) Problem: Acute Qualifiers: Heart failure type: diastolic Qualified Code(s): I50.33 - Acute on chronic diastolic (congestive) heart failure (2) Acute hyponatremia Problem: Acute (3) Fall at home Problem: Acute Qualifiers: Encounter type: initial encounter Qualified Code(s): W19.XXXA - Unspecified fall, initial encounter; Y92.009 - Unspecified place in unspecified non-institutional (private) residence as the place of occurrence of the external cause (4) B-cell lymphoma Problem: Chronic (5) HLD (hyperlipidemia) Problem: Chronic (6) HTN (hypertension) Problem: Chronic Qualifiers: Hypertension type: essential hypertension Qualified Code(s): I10 - Essential (primary) hypertension (7) Thoracic compression fracture Problem: Acute Procedures Performed: none Results and Findings: Lab Pending Results 10/05/17 01:00: Sodium 125 L, Plasma Sodium 125 L, Potassium 4.4, Chloride 92 L , Carbon Dioxide 26.4, Anion Gap 11.0, BUN 13, Creatinine 0.82, Est GFR (Non-Af Amer) 70, BUN/Creatinine Ratio 15.9, Random Glucose 95, Calcium 7.8 L 10/05/17 05:23: Sodium 127 L, Plasma Sodium 127 L, Potassium 4.4, Chloride 92 L , Carbon Dioxide 28.3, Anion Gap 11.1, BUN 12, Creatinine 0.85, Est GFR (Non-Af Amer) 67, BUN/Creatinine Ratio 14.1, Random Glucose 84, Calcium 7.9 10/06/17 05:10: Sodium 128 L, Plasma Sodium 128 L, Potassium 4.4, Chloride 93 L , Carbon Dioxide 30.1, Anion Gap 9.3, BUN 14, Creatinine 0.84, Est GFR (Non-Af Amer) 68, BUN/Creatinine Ratio 16.7, Random Glucose 83, Calcium 8.6 Disposition: [facility] Other - [facility] Condition: Stable Face to Face Encounter completed per [facility] Guidelines: Yes Discharge Diet: General/regular food, Other - Potassium rich Diet Referrals: Abimeal Singh, [Primary Care Provider] - Problem Oriented Discharge Instructions to Patient/Family: Hyponatremia, Easy- to-Read Additional Patient Instructions (free text): Follow up appointment with Dr. Singh on 10/24/17 at 3:30pm [facility]. Please fax orders on Monday. Prescriptions (Any new or edited meds): Furosemide [Lasix] 40 mg PO DAILY #30 tab Complete Home Medications List: Complete Home Medication List: Lisinopril [Zestril] 10 mg PO DAILY 11/01/12 Vit A/Vit C/Vit E/Zinc/Copper [Icaps Areds Softgel] 2 ea PO DAILY 11/01/12 Aspirin [Aspirin Enteric Coated] 81 mg PO QPM 06/20/13 Multivitamins [Multivitamin Delvin] 1 cap PO DAILY 06/20/13 Alendronate Sodium [Fosamax] 70 mg PO Q7D 01/05/15 Acetaminophen [Tylenol] 1,000 mg PO QPM PRN 11/05/15 Levothyroxine Sodium [Synthroid] 75 mcg PO DAILY 11/05/15 Polyethylene Glycol 3350 [Miralax] 17 gm PO QPM 11/05/15 calcium phosphate-vitamin D3 250 mg calcium-250 unit chewable tablet 1 tab PO BID tab 09/25/17 peg 400-propylene glycol 0.4 %-0.3 % eye drops 1 drp OP DAILY PRN 09/25/17 Ibuprofen 200 mg PO QAM 10/04/17 Furosemide [Lasix] 40 mg PO DAILY #30 tab 10/06/17 Amb Orders for Discharge: Basic Metabolic Panel Time Frame: 1 Week, Location: None Selected <Ivania Adames - Last Filed: 10/06/17 20:01> (1) Acute hyponatremia Problem: Acute (2) Acute exacerbation of CHF (congestive heart failure) Problem: Acute Qualifiers: Heart failure type: diastolic Qualified Code(s): I50.33 - Acute on chronic diastolic (congestive) heart failure (3) Thoracic compression fracture Problem: Acute (4) B-cell lymphoma Problem: Chronic (5) HTN (hypertension) Problem: Chronic Qualifiers: Hypertension type: essential hypertension Qualified Code(s): I10 - Essential (primary) hypertension (6) HLD (hyperlipidemia) Problem: Chronic Description of Stay: Admission date:10/05/17 Discharge date:10/06/17 Hospital Stay Description. Mrs. Pittman is a 87-yr-old W[facility] pt of Dr. Abimael Singh with a PMH of: B cell lymphoma, HTN, HLD, Hypothyroidism, Osteoporosis & Small bowel resection. Pt was brought to the ED by family following notification on 10/04, about abnormal follow-up labs by PCP. She reportedly had a Serum Na of 123 and BNP of 1309. Pt had been following up at the [facility] oncology following Abdominal CT results on 08/21/17, which had numerous findings involving liver lesions & probable mesenteric adenopathy, which were concerning for metastasis. Pt's family states that they were informed by the oncologist that due to pt's age, she could not withstand IV chemotherapy. Therefore, they opted to seek a second opinion at the [facility] for their mother. The pt has an appointment scheduled for next Monday (10/09). Family stated that they were concerned about the ongoing worsening swelling which has been present for a period of 1 yr , and they were asked to follow-up with PCP. She then had those labs on 10/04 as part of work-up in finding the etiology of her leg swelling. Pt denied weakness & headaches. There were no reports of lethargy or confusion according to the family. Pt denied coughing, fevers, SOB abdominal pain and diarrhea n & v. She has had back pain as a result of a fall 2 days prior to coming to the hospital , but head CT obtained did not indicate any acute findings. The CXR at the ED on DOA showed showed interstitial edema, small bilateral effusion & atelectasis. It also showed age intermediate compression fracture withing mid thoracic spine, which was new from prior exam. Pain mgt with opiods/NSAIDs was encouraged but if pain got debilitating, other options of treatment such as vertebroplasty or kyphoplasty needed to be arranged with her PCP. She was admitted inpatient due to hyponatremia. She was determined to have hypervolemic hyponatremia due signs of fluid overload given findings on the CXR, Peripheral pitting edema, and ascites - given distended firm abdomen. She was diuresed with IV Lasix which corrected her Plasma sodium from 123--> 127--> 128. Also given new clinical signs of Acute Heart Failure, She had an Echocardiogram on ( results pending) Results and Findings: Lab Pending Results 10/05/17 01:00: Sodium 125 L, Plasma Sodium 125 L, Potassium 4.4, Chloride 92 L , Carbon Dioxide 26.4, Anion Gap 11.0, BUN 13, Creatinine 0.82, Est GFR (Non-Af Amer) 70, BUN/Creatinine Ratio 15.9, Random Glucose 95, Calcium 7.8 L 10/05/17 05:23: Sodium 127 L, Plasma Sodium 127 L, Potassium 4.4, Chloride 92 L , Carbon Dioxide 28.3, Anion Gap 11.1, BUN 12, Creatinine 0.85, Est GFR (Non-Af Amer) 67, BUN/Creatinine Ratio 14.1, Random Glucose 84, Calcium 7.9 10/06/17 05:10: Sodium 128 L, Plasma Sodium 128 L, Potassium 4.4, Chloride 93 L , Carbon Dioxide 30.1, Anion Gap 9.3, BUN 14, Creatinine 0.84, Est GFR (Non-Af Amer) 68, BUN/Creatinine Ratio 16.7, Random Glucose 83, Calcium 8.6 Discharge Location: Home Discharge Activity: Activity as tolerated Discharge Diet: General/regular food
[2017-10-06] MEDS: LEVOTHYROXINE SODIUM 75 MCG TABLET PO SCH (07:25)
[2017-10-06] MEDS: IBUPROFEN 200 MG TABLET PO SCH (08:54)
[2017-10-06] MEDS: MULTIVITAMINS 1 CAP CAPSULE PO SCH (08:54)
[2017-10-06] MEDS: CALCIUM CARBONATE/VITAMIN D3 1 TAB TABLET PO SCH (08:55)
[2017-10-06] MEDS: LISINOPRIL 10 MG TABLET PO SCH (08:55)
[2017-10-06] MEDS: BETA-CAROTENE(A) W-C , E/MIN 1 TAB TABLET PO SCH (08:55)
[2017-10-06] MEDS ORDERED: FUROSEMIDE 40 MG TABLET PO SCH (13:15)
[2017-10-06 15:14] VITALS: BP 145/75
--- NOTE | 2017-10-09 15:48 | ECHO ---
This report is available in the EMR
== END 2017-10-06 15:15 | disposition home health service (06) | DRG 640 ==
LOC: ER 15:59 → MS 15:59
PROVIDERS: ADMIT Internal Medicine; ATTEND Family Medicine
CPT/HCPCS: 36415; 70450; 71020; 71046; 80048; 93005; 93306; 96360; 96361; 99285

== ENCOUNTER 2017-11-15 15:08 | Inpatient (IN) | payer BC, OTHER ==
[2017-11-15] MEDS ORDERED: POLYETHYLENE GLYCOL 400 OP PRN (17:14)
[2017-11-15] MEDS ORDERED: PROMETHAZINE HCL 25 MG TABLET PO PRN (17:14)
[2017-11-15] MEDS ORDERED: ACETAMINOPHEN 500 MG TABLET PO PRN (17:14)
[2017-11-15] MEDS ORDERED: PROPYLENE GLYCOL OP PRN (17:14)
[2017-11-15] MEDS ORDERED: CODEINE PHOSPHATE/GUAIFENESIN 5 ML UDC PO PRN (17:16)
[2017-11-15] MEDS ORDERED: ONDANSETRON HCL/PF 2 MG/ML VIAL IV PRN (17:16)
[2017-11-15] MEDS ORDERED: ATROPINE SULFATE 150 DROP BTL SL PRN (17:16)
[2017-11-15] MEDS ORDERED: MORPHINE SULFATE 2 MG/ML DISP.SYRIN IV PRN (17:16)
[2017-11-15] MEDS ORDERED: POLYVINYL ALCOHOL 150 DROP BTL EACHEYE PRN (17:16)
[2017-11-15] MEDS ORDERED: ALBUTEROL SULFATE/IPRATROPIUM 3 ML NEBU IH PRN (17:16)
[2017-11-15] MEDS ORDERED: LORazepam 2 MG/ML DISP.SYRIN IV PRN ×2 (17:16→17:56)
[2017-11-15] MEDS ORDERED: MORPHINE SULFATE 10 MG/0.5 ML SYRINGE PO PRN ×2 (17:28→17:30)
[2017-11-15] MEDS ORDERED: LORazepam 1 MG TABLET PO PRN (17:28)
[2017-11-15] MEDS ORDERED: ONDANSETRON 8 MG TAB.RAPDIS PO PRN (17:29)
--- NOTE | 2017-11-15 17:31 | HP ---
Chief Complaint - Chief Complaint Date of Service: 11/15/17 Time of Service: 17:14 Chief Complaint: Hospice History of Present Illness: Daysi is an 87 yo female that was receiving home hospice due to cancer. 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 Her abdominal pain has been increasing and her pain needs are currently unable to be met at home. 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 (Acute) Onset Date: ~2017 Hypertension Onset Date: Unknown Hypothyroidism (acquired) Onset Date: Unknown Macular degeneration Onset Date: Unknown Osteoporosis Onset Date: Unknown Fracture of humerus, left, closed Onset Date: ~01/2014 History of chemotherapy Onset Date: Unknown MALT (mucosa associated lymphoid tissue) Onset Date: Unknown Malignant lymphoma, non-Hodgkin's Onset Date: Unknown Shingles Onset Date: Unknown Small bowel obstruction Onset Date: ~09/29/16 Surgical History: Surgical History (Last Reviewed 10/26/17 @ 15:42 by Ann Sanchez RN) Encounter for insertion of venous access port Onset Date: ~01/02/13 H/O colonoscopy Onset Date: ~01/16/13 H/O exploratory laparotomy Onset Date: ~01/18/13 H/O lumpectomy Onset Date: ~1956 History of bowel resection Onset Date: ~11/02/12 History of esophagogastroduodenoscopy (EGD) Onset Date: ~06/24/13 Family History: Family History (Last Reviewed 10/26/17 @ 15:42 by Ann Sanchez RN) Father Heart disease Hypertension Grandmother Breast cancer Mother CHF (congestive heart failure) Hypertension Sister Hypertension Cancer Sister No problems noted. Social History: Preferred Language Nepali Abuse History No History of abuse Psych History No pertinent hx Review Of Systems (GEN) - Review of Systems Generalized/Overall Review: Present: Weakness. Absent: Chills, Fever EENTM: Present: No Symptoms Reported Respiratory: Present: No Symptoms Reported Cardiac: Present: No Symptoms Reported Abdominal: Present: Nausea, Abdominal Pain. Absent: Vomiting Genitourinary: Present: No Symptoms Reported Musculoskeletal: Present: No Symptoms Reported Neurological: Present: No Symptoms Reported Skin: Present: No Symptoms Reported Endocrine: Present: No Symptoms Reported Immunizations: IMMUNIZATION HX Immunizations Up to Date Yes History of Influenza Vaccine Yes Hx Pneumococcal Vaccination Yes Allergies/Adverse Reactions: Allergies Allergy/AdvReac Type Severity Reaction Status Date / Time No Known Allergies Allergy Verified 10/04/17 21:31 Home Medications: HOME MEDICATIONS Aspirin [Aspirin Enteric Coated] 81 mg PO QPM 06/20/13 [Last Taken Unknown] Acetaminophen [Tylenol] 1,000 mg PO Q6H PRN 11/05/15 [Last Taken Unknown] peg 400-propylene glycol 0.4 %-0.3 % eye drops 1 drp OP DAILY PRN 09/25/17 [Last Taken Unknown] Dexamethasone 2 mg PO DAILY 10/26/17 [Last Taken Unknown] Methadone HCl [Methadone] 2.5 mg PO BID 10/26/17 [Last Taken Unknown] Promethazine HCl [Phenergan (Promethazine)] 25 mg PO Q4H PRN 10/26/17 [Last Taken Unknown] Ativan Concentrate 0.25 - 1 ml SL Q2H PRN 11/15/17 [Last Taken Unknown] Atropine Sulfate [Atropine 1% Ophthalmic Solution] 3 - 4 drop SL Q2H PRN 11/15/17 [Last Taken Unknown] Docusate Sodium 100 mg PO DAILY 11/15/17 [Last Taken Unknown] Furosemide [Lasix] 20 mg PO BID 11/15/17 [Last Taken Unknown] Ibuprofen [Motrin] 200 mg PO QAM PRN 11/15/17 [Last Taken Unknown] LORazepam [Ativan] 1 - 2 tab PO Q4H PRN 11/15/17 [Last Taken Unknown] Potassium Chloride [Klor-Con 10] 10 meq PO DAILY 11/15/17 [Last Taken Unknown] Roxanol 0.25 - 1 ml SL Q2H PRN 11/15/17 [Last Taken Unknown] Sennosides [Senna Lax] 3 tab PO BID PRN 11/15/17 [Last Taken Unknown] Sennosides [Senokot] 8.6 mg PO HS 11/15/17 [Last Taken Unknown] Exam - Exam Constitutional: Present: Alert, Oriented x3, Moderate distress - abdominal pain ENT Exam: Present: hearing grossly normal Eye Exam: bilateral eye: normal inspection Respiratory: Present: lungs clear, normal breath sounds Cardiovascular/Chest: Present: regular rate, rhythm, no murmur Abdomen: Present: soft, tender - diffuse, hypoactive Skin Exam: Present: warm/dry, no cyanosis, jaundice Assessment/Plan - Narrative Narrative: Daysi's condition has declined and her pain needs are not met with home hospice. Suspect that she does not have much time left. Will admit to inpatient hospice on comfort cares and meet pain needs with morphine and ativan for restlessness. 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
[2017-11-15] MEDS ORDERED: MORPHINE SULFATE 10 MG/ML SYRG IV PRN (17:55)
[2017-11-15] MEDS: LORazepam 1 MG TABLET PO PRN ×3 (19:15→23:15)
[2017-11-15] MEDS: MORPHINE SULFATE 10 MG/0.5 ML SYRINGE PO PRN ×3 (20:30→23:15)
[2017-11-15] MEDS ORDERED: SENNOSIDES/DOCUSATE SODIUM 1 TAB TABLET PO SCH (21:00)
[2017-11-15] MEDS ORDERED: METHADONE HCL 10 MG TABLET PO SCH (21:00)
[2017-11-15] MEDS ORDERED: HYDROPHILIC OINTMENT 454 APPL JAR TP SCH (21:00)
[2017-11-16] MEDS: MORPHINE SULFATE 10 MG/0.5 ML SYRINGE PO PRN ×3 (00:50→07:48)
[2017-11-16] MEDS: LORazepam 1 MG TABLET PO PRN ×3 (00:50→07:47)
[2017-11-16] MEDS ORDERED: FUROSEMIDE 40 MG TABLET PO SCH (09:00)
[2017-11-16] MEDS ORDERED: DEXAMETHASONE 2 MG TABLET PO SCH (09:00)
[2017-11-16 11:17] VITALS: BP 0/0
[2017-11-16] MEDS ORDERED: POLYETHYLENE GLYCOL 3350 119 GM BTL PO SCH (17:00)
[2017-11-16] MEDS ORDERED: ASPIRIN 81 MG TABLET.DR PO SCH (17:00)
--- NOTE | 2017-12-01 09:09 | DS ---
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 She was admitted and started on comfort cares and a regimen of pain medication to keep her comfortable. Her comfort needs were met and within two days she secondary to mucinous cancer of unknown origin. Procedures Performed: none - Additional Data Confirmation of as documented by pronouncing clinician: no pulse, no respirations, no heart sounds, pupils fixed and dilated Family: at bedside
== END 2017-11-16 08:20 | disposition expired | DRG 941 ==
LOC: MS 15:08
PROVIDERS: ADMIT Family Medicine; ATTEND Surgery